=== PATIENT | female | born 1995 | race African-American/Black ===

== ENCOUNTER 2020-07-22 12:19 | Emergency (ER) | payer SELFPAY ==
[~2020-07-22] VITALS: Ht 170.2 cm; Wt 59.0 kg
[2020-07-22 12:37] VITALS: BP 120/70
--- NOTE | 2020-07-22 12:37 | NUR ---
ED Nurse Note:urine sent to labs
--- NOTE | 2020-07-22 12:38 | NUR ---
ED Nurse Note: Patient walked into ED from home c/o abdominal pain, buringing with urination, and vaginal spotting. Patient AxO x 4.
[2020-07-22 13:17] LABS: APPEARANCE,URINE CLEAR; BILIRUBIN, URINE NEGATIVE (NEGATIVE); GLUCOSE, URINE (UA) NEGATIVE (NEGATIVE); KETONES,URINE NEGATIVE (NEGATIVE); LEUKOCYTE ESTERASE ,URINE NEGATIVE (NEGATIVE); NITRITE,URINE NEGATIVE (NEGATIVE); PH,URINE 6 (4.5-8.0); PROTEIN,URINE NEGATIVE (NEGATIVE); UROBILINOGEN,URINE 1 MG/DL (0.0-1.0)
[2020-07-22 13:19] LABS: COLOR,URINE YELLOW
[2020-07-22 14:30] VITALS: BP 121/72
--- NOTE | 2020-07-22 14:30 | NUR ---
ER DISCHARGE NOTE: Patient is cleared to be discharged per ERMD, pt is aox4, on room air, with stable vital signs. pt was given dc and prescription instructions, pt was able to verbalize understanding, pt id band removed without complications. pt is able to ambulate with steady gait. pt took all belongings.
--- NOTE | 2020-07-22 14:32 | Emergency Room Report ---
History of Present Illness General Chief Complaint: Abdominal Pain Source: Patient Present Illness HPI 24 YO Female presents to the ED c/o 5 out of 10 severity lower abdominal bloating type pain x3 days. Patient reports that she is on day 3 of her menstrual cycle which is only spotting and is abnormal for her. Patient reports usually the first few days are pretty heavy. Patient reports that she is sexually active and on control. Patient is concerned for possible . Patient is with 1 prior surgical . Patient reports her symptoms are similar to how she felt when she was previously . She reports nausea but denies vomiting. She denies constipation or diarrhea. She denies urinary frequency, urgency, hematuria or dysuria. She denies hx of cysts. She reports some low back cramping. She denies fevers or chills Allergies: Coded Allergies: No Known Allergies (Unverified , 07/22/20) COVID-19 Screening Contact w/high risk pt: No Experienced COVID-19 symptoms?: No COVID-19 Testing performed ORCHID WORKER: No Patient History Last Menstrual Period: 06/28/20 Nursing Documentation-[facility] Past Medical History: No Stated History Physical Exam Vital Signs Date Time Temp Pulse Resp B/P (MAP) Pulse Ox O2 Delivery O2 Flow Rate FiO2 07/22/20 12:26 97.7 75 16 120/70 (87) 99 Room Air Sp02 EP Interpretation: reviewed, normal General Appearance: no apparent distress, alert, GCS 15, non-toxic Head: normocephalic, atraumatic Eyes: bilateral eye normal inspection, bilateral eye PERRL ENT: hearing grossly normal, normal voice Neck: full range of motion Respiratory: lungs clear, normal breath sounds, speaking full sentences Cardiovascular #1: regular rate, rhythm Gastrointestinal: normal bowel sounds, non tender, soft, non-distended, no guarding Genitourinary: normal inspection, no CVA tenderness, adnexa normal, cervix normal Musculoskeletal: back normal, normal range of motion, gait/station normal, non- tender Neurologic: alert, motor strength/tone normal, oriented x3, sensory intact, responsive, speech normal Psychiatric: judgement/insight normal Skin: no rash, normal color Lymphatic: no adenopathy Medical Decision Making PA Attestation Dr. Fiore Is my supervising Physician whom patient management has been discussed with. Diagnostic Impression: Primary Impression: Abdominal pain Qualified Codes: R10.9 - Unspecified abdominal pain Additional Impression: Spotting ER Course 24 YO Female presents to the ED c/o 5 out of 10 severity lower abdominal bloating type pain x3 days. Patient reports that she is on day 3 of her menstrual cycle which is only spotting and is abnormal for her. Patient reports usually the first few days are pretty heavy. Patient reports that she is sexually active and on control. Patient is concerned for possible pre gnancy. Patient is with 1 prior surgical . Patient reports her symptoms are similar to how she felt when she was previously . She reports nausea but denies vomiting. She denies constipation or diarrhea. She denies urinary frequency, urgency, hematuria or dysuria. She denies hx of cysts. She reports some low back cramping. She denies fevers or chills Ddx considered but are not limited to Diverticulitis, acute appy, diarrhea,UC, PUD, GE, pancreatitis, gallstone, UTI, , ectopic, irregular menses just to name a few Vital signs: are WNL, pt. is afebrile H&PE are most consistent with Possible UTI vs. vs. abnormal menstrual cycle. --- Patient is nontoxic in appearance and in no acute distress. Physical exam does not suggest acute abdomen. ORDERS: -UA: Most indicative of contamination: presence of equal amounts of bacteria and squamous cells, no elevation in inflammatory markers, nitrite negative. - Urine Hcg: Negative ED INTERVENTIONS: - Zofran PO -I do not identify an emergent condition at this time. With current presentation, pt. is stable for close outpatient follow up and conservative treatment. D/w pt. to return promptly to ED with worsening or new symptoms.- Pt. verbalizes' understanding and agreement with proposed treatment plan. DISCHARGE: At this time pt. is stable for d/c to home. Will provide printed patient care instructions, and any necessary prescriptions. Care plan and follow up instructions have been discussed with the patient prior to discharge. Labs Test 07/22/20 12:35 Urine Color Yellow Urine Appearance Clear Urine pH 6 (4.5-8.0) Urine Specific [place] 1.020 (1.005-1.035) Urine Protein Negative (NEGATIVE) Urine Glucose (UA) Negative (NEGATIVE) Urine Ketones Negative (NEGATIVE) Urine Blood 5+ (NEGATIVE) Urine Nitrite Negative (NEGATIVE) Urine Bilirubin Negative (NEGATIVE) Urine Urobilinogen 1 MG/DL (0.0-1.0) Urine Leukocyte Esterase Negative (NEGATIVE) Urine RBC 2-4 /HPF (0 - 2) Urine WBC 0-2 /HPF (0 - 2) Urine Squamous Epithelial Cells Few /LPF (NONE/OCC) Urine Bacteria Few /HPF (NONE) Urine Mucus Few /LPF (NONE/OCC) Urine HCG, Qualitative Negative (NEGATIVE) Last Vital Signs Date Time Temp Pulse Resp B/P (MAP) Pulse Ox O2 Delivery O2 Flow Rate FiO2 07/22/20 12:37 97.7 75 16 120/70 99 Room Air Status: improved Disposition: HOME, SELF-CARE Condition: Stable Scripts Ondansetron Odt* (ZOFRAN ODT*) 4 Mg Tab.rapdis 4 MG BC EVERY 6 HOURS PRN for Nausea & Vomiting, #10 TAB 0 Refills Prov: Rosana Wilson 07/22/20 Ibuprofen* (MOTRIN*) 600 Mg Tablet 600 MG ORAL THREE TIMES A DAY, #20 TAB Prov: Rosana Wilson 07/22/20 Referrals: NOT CHOSEN IPA/MD,REFERRING (PCP) Patient Instructions: Abdominal Pain, Adult Additional Instructions: Take medications as directed. Follow up with a [facility] within 3-5 days, even if your symptoms have resolved. Return sooner to ED if new symptoms occur, or current symptoms become worse. - Please note that this Emergency Department Report was dictated using [employer] turner technology software, occasionally this can lead to erroneous entry secondary to interpretation by the dictation equipment. Rosana Wilson Jul 22, 2020 14:32
[2020-07-22] MEDS ORDERED: IBUPROFEN600 M1 ORAL (14:33)
[2020-07-22] MEDS ORDERED: ONDANSETRON ODT4 MG BC (14:33)
== END 2020-07-22 14:30 | disposition home or self-care (01) ==
LOC: EMR 13:32
DX: R10.30 Lower abdominal pain, unspecified (principal); R14.0 Abdominal distension (gaseous); N93.9 Abnormal uterine and vaginal bleeding, unspecified; R11.0 Nausea; Z79.3 Long term (current) use of hormonal contraceptives
CPT/HCPCS: 81001; 81025; 99283